=== PATIENT | female | born 1970 | race Caucasian/White ===

== ENCOUNTER 2016-06-16 23:19 | Emergency (ER) | payer BC, OTHER ==
[2016-06-16 23:25] VITALS: BP 136/81; PULSE 87; RESP 18; TEMP 98.7
[2016-06-16] MEDS ORDERED: NITROGLYCERIN SL TABS 0.4 MG TAB SUBLINGUAL STA (23:32)
[2016-06-16] MEDS ORDERED: ASPIRIN 81 MG CHEW PO STA (23:50)
[2016-06-16 23:54] LABS: Basophils # (A) 0.1 k/uL (0-0.2); Basophils % (A) 1 %; CH 31.5; CHCM 33.9; Eosinophils # (A) 0.3 k/uL (0-0.7); Eosinophils % (A) 4 %; HDW 2.25; HGB 13.9 gm/dL (11.4-16.0); Luc # (Auto) 0.27; Luc % (Auto) 3; Lymphocytes # (A) 2.5 k/uL (1.0-4.8); Lymphocytes % (A) 32 %; MCH 30.9 pg (25.0-35.0); MCHC 33.2 g/dL (31.0-37.0); MCV 93.2 fL (80.0-100.0); Mean Platelet Volume 6.8; Monocytes # (A) 0.4 k/uL (0-1.0); Monocytes % (A) 5 %; Neutrophils # (A) 4.3 k/uL (1.3-7.7); Neutrophils % (A) 55 %; RBC 4.51 m/uL (3.80-5.40); RDW 11.9 % (11.5-15.5); WBC 7.9 k/uL (3.8-10.6); WBC (Perox) 8.15
[2016-06-17 00:03] LABS: ALT 42 U/L (9-52); AST 25 U/L (14-36); Alkaline Phosphatase 49 U/L (38-126); Anion Gap 12 mmol/L; Blood Urea Nitrogen 23 mg/dL (7-17); Calcium 9.3 mg/dL (8.4-10.2); Carbon Dioxide 23 mmol/L (22-30); Chloride 104 mmol/L (98-107); Glucose 115 mg/dL (74-99); INR 0.9 (<1.1); Magnesium 2.3 mg/dL (1.6-2.3); Non-African American GFR(MDRD) 54 (>60 ml/min/1.73 sqM); Partial Thromboplastin Time 23.7 sec (22.0-30.0); Potassium 4.5 mmol/L (3.5-5.1); Prothrombin Time 9.7 sec (9.0-12.0); Sodium 139 mmol/L (137-145); Total Bilirubin 0.5 mg/dL (0.2-1.3); Total Protein 7.1 g/dL (6.3-8.2)
[2016-06-17 00:13] LABS: Creatine Kinase 162 U/L (30-135)
--- NOTE | 2016-06-17 00:18 | ED ---
Chest Pain HPI - General Chief Complaint: Chest Pain Stated Complaint: chest pains Time Seen by Provider: 06/16/16 23:28 Source: patient, RN notes reviewed Mode of arrival: ambulatory Limitations: no limitations - History of Present Illness Initial Comments: 45-year-old female presents emergency Department chief complaint chest pain. Patient states she woke up just rinse morning states his been on-and-off and not resolving. She states it is better at rest worse with some movement but states that she is concerned as she has a strong family history of heart disease. Patient states she also has history of hyperlipidemia treated with diet. Patient denies diabetes, hypertension. Patient states is all left-sided pain primarily underneath her left breast. Patient contributed the pain initially to exercising and which she did a chest work out, played volleyball. Patient denies any associated shortness breath, diaphoretic episodes, nausea or vomiting. Patient states that she better with her anxiety initially took 2 Xanax no relief. She states that she tried her inhaler for asthma with no relief. Patient has NO KNOWN DRUG ALLERGIES. - Related Data Home Medications Medication Instructions Recorded Confirmed ALPRAZolam [Xanax] 0.25 mg PO TID PRN 06/16/16 06/16/16 Albuterol Inhaler [Ventolin Hfa 2 puff INHALATION RT-Q6H PRN 06/16/16 06/16/16 Inhaler] Esomeprazole Magnesium [NexIUM] 20 mg PO DAILY 06/16/16 06/16/16 Ibuprofen [Motrin] 800 mg PO BID PRN 06/16/16 06/16/16 Multivitamin [Multivitamins Adult 1 tab PO DAILY 06/16/16 06/16/16 Gummies] Allergies Allergy/AdvReac Type Severity Reaction Status Date / Time No Known Allergies Allergy Verified 06/16/16 23:44 Review of Systems ROS Statement: Those systems with pertinent positive or pertinent negative responses have been documented in the HPI. ROS Other: All systems not noted in ROS Statement are negative. EKG Findings - EKG Comments: EKG Findings:: EKG performed at 23:35 sinus rhythm with short CO, rate of 75 CO interval 110 QRS duration 70, QT/QTc 326/364 Past Medical History Past Medical History: GERD/Reflux History of Any Multi-Drug Resistant Organisms: None Reported Past Surgical History: Bladder Surgery, Tubal Ligation Past Psychological History: Anxiety, Panic Disorder Smoking Status: Current some day smoker Past Alcohol Use History: Occasional Past Drug Use History: None Reported General Exam Limitations: no limitations General appearance: alert, in no apparent distress Head exam: Present: atraumatic, normocephalic, normal inspection Respiratory exam: Present: normal lung sounds bilaterally, chest wall tenderness (Mild tenderness underneath the left breast). Absent: respiratory distress, wheezes, rales, rhonchi, stridor Cardiovascular Exam: Present: regular rate, normal rhythm, normal heart sounds. Absent: systolic murmur, diastolic murmur, rubs, gallop, clicks GI/Abdominal exam: Present: soft, normal bowel sounds. Absent: distended, tenderness, guarding, rebound, rigid Course Vital Signs 06/16/16 23:21 Temperature 98.7 F Pulse Rate 87 Respiratory 18 Rate Blood Pressure 136/81 O2 Sat by Pulse 100 Oximetry Chest Pain MDM - MDM 45-year-old female present for left-sided chest pain. Patient's pain is better at rest and is reproducible. Patient's EKG shows no acute abnormality. Patient troponin is negative. The pain started over 12 hours ago. Patient is strongly advised take 81 mg aspirin daily, follow up with primary care physician to schedule a stress test. Patient agrees to plan. Disposition Clinical Impression: Chest wall pain Disposition: HOME SELF-CARE Condition: Stable Instructions: Chest Pain (ED) Additional Instructions: Follow-up with PCP for scheduling of a stress test. Please return to the Emergency Department if symptoms worsen or any other concerns. Time of Disposition: 00:48
[2016-06-17 00:26] LABS: Creatine Kinase MB 1.4 ng/mL (0.0-2.4); Troponin I <0.012 ng/mL (0.000-0.034)
--- NOTE | 2016-06-17 00:40 | XR ---
EXAMINATION TYPE: XR chest 2V DATE OF EXAM: 06/17/2016 12:11 AM COMPARISON: 05/19/2014 HISTORY: Chest pain and asthma TECHNIQUE: Frontal and lateral views of the chest are obtained. FINDINGS: There is no focal air space opacity, pleural effusion, or pneumothorax seen. The cardiac silhouette size is within normal limits. The osseous structures are intact. IMPRESSION: 1. No acute cardiopulmonary process. 2. No significant change.
== END 2016-06-17 01:12 | disposition home or self-care (01) ==
LOC: EC 23:19
DX: R07.89 Other chest pain (principal); K21.9 Gastro-esophageal reflux disease without esophagitis; F17.200 Nicotine dependence, unspecified, uncomplicated; Z79.899 Other long term (current) drug therapy; Z82.49 Family history of ischemic heart disease and other diseases of the circulatory system
CPT/HCPCS: 36415; 71020; 80053; 82550; 82553; 83690; 83735; 84484; 85025; 85610; 85730; 93005; 99285

== ENCOUNTER → 2017-03-24 | Outpatient (CLI) | payer OTHER ==
--- NOTE | 2017-03-24 13:04 | MR ---
EXAMINATION TYPE: MR knee LT wo con DATE OF EXAM: 03/24/2017 COMPARISON: Unavailable HISTORY: Left knee pain TECHNIQUE: Multiplanar, multisequence imaging of the left knee is performed without IV contrast. 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 Anterior and posterior horns are intact wi thout tear. LATERAL MENISCUS: Anterior and posterior horns are intact without tear. CRUCIATE LIGAMENTS: The anterior and posterior cruciate ligaments are intact and unremarkable. COLLATERAL LIGAMENTS: The medial collateral ligament is intact. Some tendinosis may be present along the fibular collateral ligament, popliteus tendon. EXTENSOR MECHANISM: Visualized quadriceps and patellar tendons are intact. EFFUSION: Small amount of joint fluid present in the patellar bursa. POPLITEAL CYST: There is fluid signal present compatible with semimembranosus gastrocnemius cyst, th is is likely ruptured, fluid signal courses within the intermuscular region posterior to the knee. TRICOMPARTMENT SPACES: Maintained CARTILAGE: Grade 2 to grade III chondromalacia suspected in posterior patella, lateral femoral condyl e cartilage. BONE MARROW SIGNAL: No focal abnormal marrow signal is appreciated. OTHER: No additional significant abnormality is appreciated. IMPRESSION: There may be a ruptured Mahan's cyst. Collateral ligament tendinosis as described. Joint effusion. Ch ondromalacia, findings may be indicative of osteoarthritis. Additional findings above.
== END | disposition home or self-care (01) ==
LOC: RADMRIMAIN 09:22
PROVIDERS: ATTEND Orthopaedic Surgery
DX: M25.462 Effusion, left knee (principal); M94.262 Chondromalacia, left knee

== ENCOUNTER 2018-03-30 09:36 | Observation (INO) | payer OTHER ==
[2018-03-30] MEDS ORDERED: ASPIRIN 81 MG PO STA (10:31)
[2018-03-30] MEDS ORDERED: NITROGLYCERIN OINT 1 INCH/GM PACKET TOPICAL STA (10:31)
--- NOTE | 2018-03-30 10:37 | ED ---
General Adult HPI - General Chief complaint: Chest Pain Stated complaint: Chest pain Time Seen by Provider: 03/30/18 10:00 Source: patient, RN notes reviewed Mode of arrival: ambulatory - History of Present Illness Initial comments: This is a 47-year-old female who presents to the emergency department complaining of chest pain. She has a past history significant for cardiac disease in both parents and both siblings. Patient comes in today stating she' s had intermittent chest pain lasting about an hour to 2 hours over the last 2 weeks. Patient states the pain radiates to her left arm. Patient states she also has shortness of breath per patient denies any diaphoretic episodes or nausea. Patient states the pain seems to worsen with exertion. Patient states the frequency of the pain and the duration seems to be worsening over the last few days and this is why she came in today. Patient denies any diabetes hypertension high cost felt. Patient denies any smoking history. Patient denies any swelling to legs or calf tenderness. Patient denies abdominal pain. It is just or near syncopal episode. - Related Data Home Medications Medication Instructions Recorded Confirmed Esomeprazole Magnesium [NexIUM] 20 mg PO DAILY 06/16/16 03/30/18 Allergies Allergy/AdvReac Type Severity Reaction Status Date / Time No Known Allergies Allergy Verified 03/30/18 10:22 Review of Systems ROS Statement: Those systems with pertinent positive or pertinent negative responses have been documented in the HPI. ROS Other: All systems not noted in ROS Statement are negative. Past Medical History Past Medical History: GERD/Reflux History of Any Multi-Drug Resistant Organisms: None Reported Past Surgical History: Bladder Surgery, Tubal Ligation Past Psychological History: Anxiety, Panic Disorder Smoking Status: Former smoker Past Alcohol Use History: Occasional Past Drug Use History: None Reported General Exam - General Exam Comments Initial Comments: GENERAL: Patient is well-developed and well-nourished. Patient is nontoxic and well- hydrated and is in mild distress. ENT: Neck is soft and supple. No significant lymphadenopathy is noted. Oropharynx is clear. Moist mucous membranes. Neck has full range of motion without eliciting any pain. EYES: The sclera were anicteric and conjunctiva were pink and moist. Extraocular movements were intact and pupils were equal round and reactive to light. Eyelids were unremarkable. PULMONARY: Unlabored respirations. Good breath sounds bilaterally. No audible rales rhonchi or wheezing was noted. CARDIOVASCULAR: There is a regular rate and rhythm without any murmurs gallops or rubs. ABDOMEN: Soft and nontender with normal bowel sounds. No palpable organomegaly was noted. There is no palpable pulsatile mass. SKIN: Skin is clear with no lesions or rashes and otherwise unremarkable. NEUROLOGIC: Patient is alert and oriented x3. Cranial nerves II through XII are grossly intact. Motor and sensory are also intact. Normal speech, volume and content. Symmetrical smile. MUSCULOSKELETAL: Normal extremities with adequate strength and full range of motion. No lower extremity swelling or edema. No calf tenderness. LYMPHATICS: No significant lymphadenopathy is noted PSYCHIATRIC: Normal psychiatric evaluation. Normal interpersonal interactions appears functionally intact in deals appropriately with others. No signs of depression. No signs of anxiety. Course Vital Signs 03/30/18 03/30/18 09:40 10:57 Temperature 98.5 F Pulse Rate 92 80 Respiratory 18 18 Rate Blood Pressure 141/93 137/98 O2 Sat by Pulse 100 100 Oximetry Medical Decision Making - Medical Decision Making EKG shows a normal sinus rhythm at 83 bpm MO interval is 116 QRS is 76 QT interval 360 QTC is 423. Patient's EKG shows no ST segment elevation or ST segment depression. No T-wave abnormalities are noted. Chest x-ray shows no acute abnormality. - Lab Data Result diagrams: 03/30/18 10:12 03/30/18 10:12 Lab Results 03/30/18 03/30/18 03/30/18 Range/Units 10:12 10:12 10:12 WBC 6.3 (3.8-10.6) k/uL RBC 4.55 (3.80-5.40) m/uL Hgb 14.0 (11.4-16.0) gm/dL Hct 41.5 (34.0-46.0) % MCV 91.2 (80.0-100.0) fL MCH 30.7 (25.0-35.0) pg MCHC 33.6 (31.0-37.0) g/dL RDW 11.7 (11.5-15.5) % Plt Count 272 (150-450) k/uL Neutrophils % 66 % Lymphocytes % 25 % Monocytes % 6 % Eosinophils % 1 % Basophils % 1 % Neutrophils # 4.1 (1.3-7.7) k/uL Lymphocytes # 1.6 (1.0-4.8) k/uL Monocytes # 0.4 (0-1.0) k/uL Eosinophils # 0.1 (0-0.7) k/uL Basophils # 0.0 (0-0.2) k/uL PT (9.0-12.0) sec INR (<1.2) APTT (22.0-30.0) sec Sodium 137 (137-145) mmol/L Potassium 4.7 (3.5-5.1) mmol/L Chloride 108 H (98-107) mmol/L Carbon Dioxide 22 (22-30) mmol/L Anion Gap 7 mmol/L BUN 22 H (7-17) mg/dL Creatinine 0.84 (0.52-1.04) mg/dL Est GFR (CKD-EPI)AfAm >90 (>60 ml/min/1.73 sqM) Est GFR (CKD-EPI)NonAf 83 (>60 ml/min/1.73 sqM) Glucose 104 H (74-99) mg/dL Calcium 9.6 (8.4-10.2) mg/dL Magnesium 2.2 (1.6-2.3) mg/dL Total Bilirubin 0.6 (0.2-1.3) mg/dL AST 23 (14-36) U/L ALT 41 (9-52) U/L Alkaline Phosphatase 37 L (38-126) U/L Total Creatine Kinase 45 (30-135) U/L CK-MB (CK-2) 0.2 (0.0-2.4) ng/mL CK-MB (CK-2) Rel Index 0.4 Troponin I <0.012 (0.000-0.034) ng/mL Total Protein 6.9 (6.3-8.2) g/dL Albumin 4.1 (3.5-5.0) g/dL 03/30/18 Range/Units 10:12 WBC (3.8-10.6) k/uL RBC (3.80-5.40) m/uL Hgb (11.4-16.0) gm/dL Hct (34.0-46.0) % MCV (80.0-100.0) fL MCH (25.0-35.0) pg MCHC (31.0-37.0) g/dL RDW (11.5-15.5) % Plt Count (150-450) k/uL Neutrophils % % Lymphocytes % % Monocytes % % Eosinophils % % Basophils % % Neutrophils # (1.3-7.7) k/uL Lymphocytes # (1.0-4.8) k/uL Monocytes # (0-1.0) k/uL Eosinophils # (0-0.7) k/uL Basophils # (0-0.2) k/uL PT 9.5 (9.0-12.0) sec INR 1.0 (<1.2) APTT 23.5 (22.0-30.0) sec Sodium (137-145) mmol/L Potassium (3.5-5.1) mmol/L Chloride (98-107) mmol/L Carbon Dioxide (22-30) mmol/L Anion Gap mmol/L BUN (7-17) mg/dL Creatinine (0.52-1.04) mg/dL Est GFR (CKD-EPI)AfAm (>60 ml/min/1.73 sqM) Est GFR (CKD-EPI)NonAf (>60 ml/min/1.73 sqM) Glucose (74-99) mg/dL Calcium (8.4-10.2) mg/dL Magnesium (1.6-2.3) mg/dL Total Bilirubin (0.2-1.3) mg/dL AST (14-36) U/L ALT (9-52) U/L Alkaline Phosphatase (38-126) U/L Total Creatine Kinase (30-135) U/L CK-MB (CK-2) (0.0-2.4) ng/mL CK-MB (CK-2) Rel Index Troponin I (0.000-0.034) ng/mL Total Protein (6.3-8.2) g/dL Albumin (3.5-5.0) g/dL Critical Care Time Critical Care Time: Yes Total Critical Care Time: 35 Disposition Clinical Impression: Unstable angina pectoris Disposition: ADMITTED IP TO THIS [facility] Referrals: Abiodun Beck Jr, [Primary Care Provider] - 1-2 days Time of Disposition: 12:11
[2018-03-30 10:57] LABS: Basophils % (A) 1 %; Eosinophils # (A) 0.1 k/uL (0-0.7); Eosinophils % (A) 1 %; HCT 41.5 % (34.0-46.0); Lymphocytes # (A) 1.6 k/uL (1.0-4.8); Lymphocytes % (A) 25 %; MCH 30.7 pg (25.0-35.0); MCHC 33.6 g/dL (31.0-37.0); MCV 91.2 fL (80.0-100.0); Mean Platelet Volume 6.7; Monocytes # (A) 0.4 k/uL (0-1.0); Monocytes % (A) 6 %; Neutrophils # (A) 4.1 k/uL (1.3-7.7); Neutrophils % (A) 66 %; Platelet Count 272 k/uL (150-450); RBC 4.55 m/uL (3.80-5.40); RDW 11.7 % (11.5-15.5); WBC 6.3 k/uL (3.8-10.6)
--- NOTE | 2018-03-30 10:57 | XR ---
EXAMINATION TYPE: XR chest 2V DATE OF EXAM: 03/30/2018 COMPARISON: June 17, 2016 HISTORY: Chest pain TECHNIQUE: Frontal and lateral views of the chest are obtained. FINDINGS: There is no focal air space opacity. No evidence for pneumothorax. No pleural effusion. The cardiac silhouette size is within normal limits. The osseous structures are grossly intact. IMPRESSION: 1. No acute cardiopulmonary process.
[2018-03-30 11:01] LABS: Partial Thromboplastin Time 23.5 sec (22.0-30.0); Prothrombin Time 9.5 sec (9.0-12.0)
[2018-03-30 11:04] LABS: ALT 41 U/L (9-52); AST 23 U/L (14-36); Albumin 4.1 g/dL (3.5-5.0); Alkaline Phosphatase 37 U/L (38-126); Anion Gap 7 mmol/L; Blood Urea Nitrogen 22 mg/dL (7-17); Calcium 9.6 mg/dL (8.4-10.2); Carbon Dioxide 22 mmol/L (22-30); Chloride 108 mmol/L (98-107); Glucose 104 mg/dL (74-99); Magnesium 2.2 mg/dL (1.6-2.3); Potassium 4.7 mmol/L (3.5-5.1); Sodium 137 mmol/L (137-145); Total Bilirubin 0.6 mg/dL (0.2-1.3); Total Protein 6.9 g/dL (6.3-8.2)
[2018-03-30 11:16] LABS: Creatine Kinase 45 U/L (30-135)
[2018-03-30 11:28] LABS: Creatine Kinase MB 0.2 ng/mL (0.0-2.4); Troponin I <0.012 ng/mL (0.000-0.034)
[2018-03-30] MEDS ORDERED: HEPARIN SODIUM,PORCINE 5,000 UNIT/ML 1 ML VIAL IV ONE (12:07)
[2018-03-30] MEDS ORDERED: NITROGLYCERIN SL TABS 0.4 MG TAB SUBLINGUAL PRN (12:14)
[2018-03-30] MEDS ORDERED: HEPARIN SOD,PORK IN 0.45% NACL 25,000 UNIT in 0.45% NACL 1 500ML.BAG IV SCH (12:15)
--- NOTE | 2018-03-30 15:30 | P.CRDCN ---
History of Present Illness History of present illness: This is a pleasant 47-year-old female past medical history significant for gastroesophageal reflux disease anxiety. She denies history of coronary artery disease, hypertension, dyslipidemia or diabetes mellitus. She has never seen a core carrier for any reason. We have been asked to see her in consultation for chest pain. She states over the last week she has been under an increased amount of stress. She states she does suffer with anxiety and says that it gets worse when she is stressed out. She has been experiencing intermittent symptoms of burning in the mid-sternal region with radiation to the left shoulder. When she is experiencing these symptoms she feels like she cannot take a deep breath. She denies radiation to the back, neck or jaw. She does feel some tingling in the left hand at times. She denies palpitations, dizziness, nausea, vomiting or diaphoresis. This morning she woke up with the burning in her chest and it has been constant all day. Typically it goes away after 10-15 minutes but this time it was persistent. She carried on with her normal routine today and the pain didn't get any worse with activity, just remained constant. EKG reveals sinus mechanism with no acute ST or T wave abnormalities noted. Chest x-ray is negative for an acute cardiopulmonary process. Laboratory data reviewed, hemoglobin 14, platelets 272, sodium 137, potassium 4.7, creatinine 0.84, magnesium 2.2, cardiac enzymes negative 1. She takes no daily cardiac medications. At the time of my exam: CONSTITUTIONAL: Denies fever. Denies chills. EYES: Denies blurred vision. Denies vision changes. Denies eye pain. EARS, NOSE, MOUTH & THROAT: Denies headache. Denies sore throat. Denies ear pain. CARDIOVASCULAR: Denies chest pain. Denies shortness of breath. Denies orthopnea. Denies PND. Denies palpitations. RESPIRATORY: Denies cough. GASTROINTESTINAL: Denies abdominal pain. Denies diarrhea. Denies constipation. Denies nausea. Denies vomiting. MUSCULOSKELETAL: Denies myalgias. INTEGUMENTARY: Denies pruitis. Denies rash. NEUROLOGIC: Denies numbness. Denies tingling. Denies weakness. PSYCHIATRIC: Denies anxiety. Denies depression. ENDOCRINE: Denies fatigue. Denies weight change. Denies polydipsia. Denies polyurina. GENITOURINARY: Denies burning, hematuria or urgency with micturation. HEMATOLOGIC: Denies history of anemia. Denies bleeding. Blood pressure 137/98 heart rate 88 afebrile maintaining oxygen saturation on room air GENERAL: This is a 47-year-old female in no apparent distress at the time of my examination. HEENT: Head is atraumatic, normocephalic. Pupils are equal, round. Sclerae anicteric. Conjunctivae are clear. Mucous membranes of the mouth are moist. Neck is supple. There is no jugular venous distention. No carotid bruit is heard. LUNGS: Clear to auscultation no wheezes, rales or rhonchi. No chest wall tenderness is noted on palpation or with deep breathing. HEART: Regular rate and rhythm without murmurs, rubs or gallops. S1 and S2 heard. ABDOMEN: Soft, nontender. Bowel sounds are heard. No organomegaly noted. EXTREMITIES: No evidence of peripheral edema and no calf tenderness noted. VASCULAR: Radial and dorsalis pedis pulses palpated, no evidence of clubbing. NEUROLOGIC: Patient is awake, alert and oriented x3. ASSESSMENT Precordial chest pain. Gastroesophageal relux disease Anxiety Significant family history of premature coronary artery disease PLAN Continue to obtain cardiac enzymes to rule out an acute coronary event. Obtain 2D echocardiogram and doppler study to assess cardiac structure and function. Increase activity and ambulation in the hallways and continue to assess for ongoing chest discomfort. Further recommendations to follow based on clinical course. Thank you kindly for this consultation. Nurse Practitioner note has been reviewed, I agree with a documented findings and plan of care. Patient was seen and examined. Past Medical History Past Medical History: GERD/Reflux History of Any Multi-Drug Resistant Organisms: None Reported Past Surgical History: Bladder Surgery, Tubal Ligation Past Psychological History: Anxiety, Panic Disorder Smoking Status: Former smoker Past Alcohol Use History: Occasional Past Drug Use History: None Reported Medications and Allergies Home Medications Medication Instructions Recorded Confirmed Type Esomeprazole Magnesium [NexIUM] 20 mg PO DAILY 06/16/16 03/30/18 History Allergies Allergy/AdvReac Type Severity Reaction Status Date / Time No Known Allergies Allergy Verified 03/30/18 10:22 Physical Exam Vitals: Vital Signs Temp Pulse Resp BP Pulse Ox 03/30/18 10:57 80 18 137/98 100 11/16/18 09:40 98.5 F 92 18 141/93 100 Intake and Output 03/29/18 03/30/18 03/30/18 22:59 06:59 14:59 Other: Weight 86.636 kg Results 03/30/18 10:12 03/30/18 10:12 Cardiac Enzymes 03/30/18 03/30/18 Range/Units 10:12 10:12 AST 23 (14-36) U/L CK-MB (CK-2) 0.2 (0.0-2.4) ng/mL Troponin I <0.012 (0.000-0.034) ng/mL Coagulation 03/30/18 Range/Units 10:12 PT 9.5 (9.0-12.0) sec APTT 23.5 (22.0-30.0) sec CBC 03/30/18 Range/Units 10:12 WBC 6.3 (3.8-10.6) k/uL RBC 4.55 (3.80-5.40) m/uL Hgb 14.0 (11.4-16.0) gm/dL Hct 41.5 (34.0-46.0) % Plt Count 272 (150-450) k/uL Comprehensive Metabolic Panel 03/30/18 Range/Units 10:12 Sodium 137 (137-145) mmol/L Potassium 4.7 (3.5-5.1) mmol/L Chloride 108 H (98-107) mmol/L Carbon Dioxide 22 (22-30) mmol/L BUN 22 H (7-17) mg/dL Creatinine 0.84 (0.52-1.04) mg/dL Glucose 104 H (74-99) mg/dL Calcium 9.6 (8.4-10.2) mg/dL AST 23 (14-36) U/L ALT 41 (9-52) U/L Alkaline Phosphatase 37 L (38-126) U/L Total Protein 6.9 (6.3-8.2) g/dL Albumin 4.1 (3.5-5.0) g/dL Current Medications Generic Name Dose Route Start Last Admin Trade Name Freq PRN Reason Stop Dose Admin Aspirin 325 mg 03/31/18 09:00 Aspirin PO DAILY YI Heparin Sodium/Sodium Chloride 500 mls @ 20 mls/hr 03/30/18 12:15 25,000 unit/ Sodium Chloride IV .Q24H REPLACED BY [facility] Protocol 11.543 UNITS/KG/HR Nitroglycerin 1 inch 03/30/18 18:00 Nitro-Bid Oint TOPICAL Q6HR REPLACED BY [facility] Nitroglycerin 0.4 mg 03/30/18 12:14 Nitrostat SUBLINGUAL Q5M PRN Chest Pain Intake and Output 03/29/18 03/30/18 03/30/18 22:59 06:59 14:59 Other: Weight 86.636 kg Patient Weight 03/31/18 06:59 Weight 86.636 kg 03/30/18 10:12 03/30/18 10:12
[2018-03-30 16:33] LABS: Creatine Kinase 42 U/L (30-135)
[2018-03-30 16:47] LABS: Creatine Kinase MB <0.2 ng/mL (0.0-2.4); Troponin I <0.012 ng/mL (0.000-0.034)
[2018-03-30] MEDS ORDERED: NITROGLYCERIN OINT 1 INCH/GM PACKET TOPICAL SCH (18:00)
[2018-03-30 19:36] VITALS: BP 128/85; PULSE 83; RESP 16; TEMP 97.6
--- NOTE | 2018-03-31 06:39 | ECHOF ---
Referral Reason:cp, sob MEASUREMENTS -------- HEIGHT: 165.1 cm WEIGHT: 86.6 kg BP: 137/98 RVIDd: 2.3 cm (< 3.3) IVSd: 0.9 cm (0.6 - 1.1) LVIDd: 4.3 cm (3.9 - 5.3) LVPWd: 0.9 cm (0.6 - 1.1) IVSs: 1.3 cm LVIDs: 2.9 cm LVPWs: 1.4 cm LAESV Index (A-L): 16.35 ml/m Ao Diam: 3.0 cm (2.0 - 3.7) AV Cusp: 2.0 cm (1.5 - 2.6) LA Diam: 2.0 cm (2.7 - 3.8) EPSS: 0.6 cm MV E Rene: 0.75 m/s MV DecT: 295 ms MV A Rene: 0.72 m/s MV E/A Ratio: 1.05 RAP: 5.00 mmHg RVSP: 23.37 mmHg MV EF SLOPE: 100.93 mm/s (70 - 150) MV EXCURSION: 1.90 cm (> 18.000) FINDINGS -------- Sinus rhythm. This was a technically good study. The left ventricular size is normal. Left ventricular wall thickness is normal. Overall left vent ricular systolic function is normal with, an EF between 55 - 60 %. The right ventricle is normal in size and function. Normal LA size by volume 22+/-6 ml/m2. The right atrium is normal in size. The aortic valve is trileaflet, and appears structurally normal. No aortic stenosis or regurgitation. The mitral valve leaflets are mildly thickened. There is trace to mild mitral regurgitation. Trace tricuspid regurgitation present. Right ventricular systolic pressure is normal at < 35 mmHg. There is no evidence of pulmonary hypertension. The pulmonic valve was not well visualized. The aortic root size is normal. Normal inferior vena cava with normal inspiratory collapse consistent with estimated right atrial pre ssure of 5 mmHg. There is no pericardial effusion. CONCLUSIONS -------- 1. Sinus rhythm. 2. This was a technically good study. 3. The left ventricular size is normal. 4. Left ventricular wall thickness is normal. 5. Overall left ventricular systolic function is normal with, an EF between 55 - 60 %. 6. Normal LA size by volume 22+/-6 ml/m2. 7. The aortic valve is trileaflet, and appears structurally normal. No aortic stenosis or regurgitati on. 8. The mitral valve leaflets are mildly thickened. 9. There is trace to mild mitral regurgitation. 10. Trace tricuspid regurgitation present. 11. Right ventricular systolic pressure is normal at < 35 mmHg. 12. There is no evidence of pulmonary hypertension. 13. The pulmonic valve was not well visualized. 14. The aortic root size is normal. 15. There is no pericardial effusion. PROGRAM PLANNER: Keon Giraldo RDCS
[2018-03-31] MEDS ORDERED: PANTOPRAZOLE 40 MG TABLET PO SCH (07:30)
[2018-03-31] MEDS ORDERED: ASPIRIN 325 MG TAB PO SCH (09:00)
== END 2018-03-30 20:10 | disposition home or self-care (01) ==
LOC: EC 09:36 → 1SOBS 12:14
PROVIDERS: ADMIT Family Medicine; ATTEND Family Medicine
DX: R07.2 Precordial pain (principal); F41.0 Panic disorder [episodic paroxysmal anxiety]; R20.2 Paresthesia of skin; K21.9 Gastro-esophageal reflux disease without esophagitis; Z82.49 Family history of ischemic heart disease and other diseases of the circulatory system; Z87.891 Personal history of nicotine dependence; Z98.51 Tubal ligation status; Z79.899 Other long term (current) drug therapy
CPT/HCPCS: 99291; 36415; 93005; 93306; 80053; 82550; 82553; 83735; 84484; 85025; 85610; 85730; 71046; G0378

== ENCOUNTER → 2022-02-25 | Outpatient (CLI) | payer MEDICAID ==
--- NOTE | 2022-02-28 11:46 | MM ---
Reason for Exam: Screening (asymptomatic). Last mammogram was performed 14 year(s) and 11 month(s) ago. Patient History: Menarche at age 12. First Full-Term at age 23. Patient used Hormonal Contraceptives for 2 years. Risk Values: Darlene 5 year model risk: 0.9%. NCI Lifetime model risk: 7.9%. Prior Study Comparison: 04/26/2006 Left Diagnostic Mammogram, [facility]. 04/13/2007 Bilateral Screening Mammogram, [facility]. 04/24/2007 Left Diagnostic Mammogram, [facility]. Tissue Density: The breast tissue is heterogeneously dense. This may lower the sensitivity of mammography. Findings: Analyzed By CAD. There is 2.8 cm spiculated mass in the middle depth outer slightly inferior aspect left breast that warrants further workup. Benign-appearing bilateral axillary lymph nodes are present. Overall Assessment: Incomplete: need additional imaging evaluation, BI-RAD 0 Management: Diagnostic Breast Ultrasound of the left breast. Targeted ultrasound left breast. Electronically signed and approved by: Osei Deleon M.D.
== END | disposition home or self-care (01) ==
LOC: RADMAMWWP 12:48
PROVIDERS: ATTEND Obstetrics & Gynecology
DX: Z12.31 Encounter for screening mammogram for malignant neoplasm of breast (principal)
CPT/HCPCS: 77063; 77067

== ENCOUNTER → 2022-03-04 | Outpatient (CLI) | payer MEDICAID ==
--- NOTE | 2022-03-04 14:21 | USB ---
Patient History: Menarche at age 12. First Full-Term at age 23. Patient used Hormonal Contraceptives for 2 years. Risk Values: Darlene 5 year model risk: 0.9%. NCI Lifetime model risk: 7.9%. Technique: Method: Targeted. Prior Study Comparison: 04/13/2007 Bilateral Screening Mammogram, [facility]. 04/24/2007 Left Diagnostic Mammogram, [facility]. 02/25/2022 Bilateral MG 3D screening mammo w/cad, [facility]. Findings: The lower outer quadrant of the left breast, the axilla of the left breast and the retroareolar of the left breast were scanned. Left breast 3:00-6:00 was scanned. There is a spiculated hypoechoic mass with ill-defined borders that is antiparallel measuring up to 2.1 x 1.2 x 1.2 cm at 4:00 6 cm from the nipple. Additional anechoic cyst is immediately adjacent measuring up to 4 mm. Overall Assessment: Highly suggestive of malignancy, BI-RAD 5 Management: Ultrasound Core Biopsy of the left breast. A clinical breast exam by your physician is recommended on an annual basis and results should be correlated with mammographic findings. This exam should not preclude additional follow-up of suspicious palpable abnormalities. ??Results were given to the patient verbally at the time of exam. Electronically signed and approved by: Fan Alexander DO
== END | disposition home or self-care (01) ==
LOC: RADUSWWP 13:32
PROVIDERS: ATTEND Obstetrics & Gynecology
DX: R92.8 Other abnormal and inconclusive findings on diagnostic imaging of breast (principal)

== ENCOUNTER → 2022-03-16 | Day surgery (SDC) | payer MEDICAID ==
--- NOTE | 2022-03-21 14:44 | MM ---
Reason for Exam: Post Procedure Mammogram. Last screening mammogram was performed less than 1 month ago. Patient History: Menarche at age 12. First Full-Term at age 23. Patient used Hormonal Contraceptives for 2 years. Risk Values: Darlene 5 year model risk: 0.9%. NCI Lifetime model risk: 7.9%. Prior Study Comparison: 04/13/2007 Bilateral Screening Mammogram, [facility]. 04/24/2007 Left Diagnostic Mammogram, [facility]. 02/25/2022 Bilateral MG 3D screening mammo w/cad, [facility]. Tissue Density: Left: The breast tissue is heterogeneously dense. This may lower the sensitivity of mammography. Pathology Description: Location: 4 o'clock, lower outer quadrant. Marker Left Behind. Needle Type: Celero Cores: 2 Gauge: 12 The procedure of ultrasound guided core biopsy was explained to the patient. Benefits, alternatives, and risks were discussed. An informed consent was then obtained. The patient was placed in supine positioning for imaging and for the procedure. Preprocedure ultrasound redemonstrates irregular hypoechoic 1.8 cm mass at 4:00 position left breast approximately 6 cm distance from nipple. The overlying skin was prepped and draped in usual sterile fashion. Lidocaine is used as anesthetic into the skin and subcutaneous tissue. Lidocaine with epinephrine is used as anesthetic into the deeper tissue up to area of concern in the left breast. A chloe was made with surgical scalpel. Under ultrasound guidance, a vacuum assisted biopsy gun device was used to obtain 2 core samples. Following this, a biopsy clip was left in lesion. The patient tolerated the procedure well without any immediate complication. The patient was kept in the radiology department for short stay after the procedure and then discharged home in stable condition. Postprocedure mammogram: The patient was transferred to mammography for physician ordered post procedure mammogram for clip placement verification. Clip in satisfactory position relative to area of concern on original mammogram. Impression: Successful, uncomplicated ultrasound guided core biopsy of area of concern in the left breast, full pathology results to follow. High index of suspicion noted at time of procedure. Pathology Results: Result: Malignant, Invasive ductal carcinoma. LEFT BREAST, FOUR O'CLOCK, ULTRASOUND GUIDED NEEDLE CORE BIOPSY: Invasive moderately differentiated ductal carcinoma (grade 2). See Surgical Pathology Cancer Case Summary and Comment. Overall Assessment: Malignant Assessment: MG diagnostic mammo LT wo CAD. - Left: Known biopsy proven malignancy, BI-RAD 6. Management: Surgical Consultation of the left breast. Electronically signed and approved by: Osei Deleon M.D.
== END ==
LOC: RADUSWWP 10:14
PROVIDERS: ATTEND Surgery
DX: C50.912 Malignant neoplasm of unspecified site of left female breast (principal); Z17.0 Estrogen receptor positive status [ER+]
CPT/HCPCS: 88305; 88342; 88341; 77065; 19083; A4648

== ENCOUNTER → 2022-03-18 | Outpatient (CLI) | payer MEDICAID ==
[2022-03-18 11:57] VITALS: BP 136/86; PULSE 81; RESP 17; TEMP 98
--- NOTE | 2022-03-18 12:34 | P.GSHP ---
History of Present Illness H&P Date: 03/18/22 Chief Complaint: Left breast invasive ductal carcinoma Zohreh is a 51-year-old white female seen in consultation for Dr. Alford with a left breast core biopsy revealing invasive ductal carcinoma. She underwent a bilateral screening mammogram on [id number] which revealed a 2.8 cm spiculated mass in the middle depth other inferior aspect of the left breast for which further workup was recommended. A diagnostic ultrasound was performed which confirmed the lesion of concern. This revealed a 2.1 x 1.2 cm lesion at the 6 o'clock position of the left breast. An ultrasound-guided core biopsy was performed on which was positive for invasive ductal carcinoma, ER/CT positive, HER-2 negative, grade 2. The patient does not feel anything in her breast. She was to undergo hormone therapy as she is perimenopausal and as part of the workup a mammogram was ordered. She had not had a mammogram for several years. She has never had any surgery in her breasts. She has not had any recent trauma or infection in the breast. She is not complaining of any nipple discharge or skin changes. Nicotine: stopped 5 years ago, used to smoke 1/3 PPD; intermittently for 20 years Caffeine: 2 cups/day chocolate: occasional hormones: none Family History: mother: endometrial cancer paternal grandmother: lymphoma Hormonal history: Menarche: 12 breast fed: no, age at first : 23 menopause: LMP October 2007; had an ablation had a hysterectomy in 2011 did not take her ovaries not done for cancer; she had precancer cells removed from cervix in 2009 Surgical history: Right ankle hysterectomy Bladder sling tubal Medical History: asthma HTN Social History: nicotine: Negative Alcohol: Occasional Drugs: - Constitutional Constitutional: Reports sweats - EENT Eyes: denies blurred vision, denies pain Ears: bilateral: tinnitus, deny: decreased hearing Ears, nose, mouth and throat: Denies headache, Denies sore throat - Breasts Breasts: bilateral: as per HPI - Cardiovascular Cardiovascular: Denies chest pain, Denies shortness of breath - Respiratory Respiratory: Denies cough, Denies 7 - Gastrointestinal Gastrointestinal: Denies abdominal pain, Denies diarrhea, Denies nausea, Denies vomiting - Genitourinary (Female) Genitourinary: Denies dysuria, Denies hematuria - Menstruation Menstruation: Reports post hysterectomy - Musculoskeletal Musculoskeletal: Denies myalgias - Integumentary Integumentary: Denies pruritus, Denies rash - Neurological Neurological: Denies numbness, Denies weakness - Psychiatric Psychiatric: Reports anxiety, Denies depression - Endocrine Endocrine: Denies fatigue, Denies weight change - Hematologic/Lymphatic Comment: none - Allergic/Immunologic Allergic/Immunologic: Reports seasonal allergies Past Medical History Past Medical History: Asthma, GERD/Reflux, Hypertension History of Any Multi-Drug Resistant Organisms: None Reported Past Surgical History: Bladder Surgery, Hysterectomy, Tubal Ligation Additional Past Surgical History / Comment(s): right ankle Past Anesthesia/Blood Transfusion Reactions: No Reported Reaction Past Psychological History: Anxiety, Panic Disorder Smoking Status: Former smoker Past Alcohol Use History: Occasional Additional Past Alcohol Use History / Comment(s): quit smoking 2016 Past Drug Use History: None Reported Medications and Allergies Home Medications Medication Instructions Recorded Confirmed Type Esomeprazole Magnesium [NexIUM] 20 mg PO DAILY 06/16/16 03/18/22 History Losartan [Cozaar] 50 mg PO DAILY 03/07/22 03/18/22 History amLODIPine [Norvasc] 5 mg PO DAILY 03/07/22 03/18/22 History Allergies Allergy/AdvReac Type Severity Reaction Status Date / Time No Known Allergies Allergy Verified 03/18/22 11:53 Surgical - Exam Vital Signs Temp Pulse Resp BP Pulse Ox 98 F 81 17 136/86 100 03/18/22 11:54 03/18/22 11:54 03/18/22 11:54 03/18/22 11:54 03/18/22 11:54 BMI: 31.6 - General no distress - Eyes normal ocular movement - ENT no hearing loss - Neck trachea midline - Respiratory normal respiratory effort - Cardiovascular Heart Sounds: normal: S1, S2 - Abdomen Abdomen: soft - Integumentary normal turgor - Musculoskeletal normal gait - Psychiatric oriented to time, oriented to person, oriented to place, speech is normal, memory intact Breast Exam: BRA: 36D Inspection: bilateral grade 2 ptosis Palpation: Right breast: Multiple position with exam fibrocystic changes no dominant masses or nodules of concern Right axilla: No adenopathy of concern Left breast: Multiple positional exam in approximately the 7 o'clock position is approximately 2 cm area of induration and there are ecchymotic changes from her recent biopsy no other dominant masses or notches of concern Left axilla: No adenopathy of concern Results Mammogram reviewed with Dr. Alexander Assessment and Plan Assessment: Impression: Left breast invasive ductal carcinoma T2 N0 M0 ER/CT positive HER-2/miguel negative G2 stage IB Plan: Presentation of case at tumor board Probable left breast needle localization lumpectomy with hyperplastic tissue transfer, sentinel node biopsy, possible axillary node dissection Possible genetic testing CC: Dr. Alford
== END | disposition home or self-care (01) ==
LOC: WWCWWP 11:34
PROVIDERS: ATTEND Surgery
DX: Z53.9 Procedure and treatment not carried out, unspecified reason (principal)

== ENCOUNTER → 2023-06-21 | Day surgery (SDC) | payer BC, MEDICAID ==
[2023-06-19 12:12] VITALS: BMI 30.7
[~2023-06-21] MED LIST: LIDOCAINE 1% (10MG/ML) FOR IV START INTRADERMA PRN; LIDOCAINE 1% INJ 10MG/ML (20 ML MDV) ONE; PROPOFOL 10 MG/ML 20 ML VIAL IV ONE
[2023-06-21] MEDS: LACTATED RINGERS 1,000 ML IV SCH (09:33)
[2023-06-21 09:43] VITALS: TEMP 96.8
--- NOTE | 2023-06-21 10:27 | P.PCN ---
Date of Procedure: 06/21/23 Procedure(s) Performed: BRIEF HISTORY: Patient is a 52-year-old pleasant female scheduled for an elective colonoscopy as a part of screening for colon cancer. PROCEDURE PERFORMED: Colonoscopy with biopsy. PREOPERATIVE DIAGNOSIS: Screening for colon cancer. IV sedation per Anesthesia. PROCEDURE: After informed consent was obtained, the patient, was brought into the endoscopy unit. IV sedation was administered by Anesthesia under continuous monitoring. Digital rectal examination was normal. Initially the Olympus CF-160 flexible video colonoscope was then inserted in the rectum, gradually advanced into the cecum without any difficulty. Careful examination was performed as the scope was gradually being withdrawn. Ileocecal valve and the appendiceal orifice were visualized and appeared normal. Prep was excellent. Mucosa of the cecum as a millimeter polyp that was removed by cold biopsy. Rest of the, ascending colon, transverse colon, descending colon, sigmoid colon, and rectum appeared normal. In the; there was another 3 mm polyp that was removed by cold biopsy. Retroflexion was performed in the rectum and no lesions were seen. The patient tolerated the procedure well. IMPRESSION: 3 mm cecal polyp status post cold biopsy 3 mm; sigmoid polyp status post cold biopsy Rest of the colon appeared normal RECOMMENDATIONS: Findings of this examination were discussed with the patient and family. She was advised to follow with the biopsy results. If the biopsy results adenoma she can have a repeat colonoscopy in 5 years have a repeat screening colonoscopy in 10 years..
[2023-06-21 10:44] VITALS: RESP 16
[2023-06-21 11:14] VITALS: BP 114/79; PULSE 94
== END ==
LOC: ORWHC2ENDO 09:10
PROVIDERS: ATTEND Internal Medicine Gastroenterology
DX: Z12.11 Encounter for screening for malignant neoplasm of colon (principal); D12.0 Benign neoplasm of cecum; K63.5 Polyp of colon; I10 Essential (primary) hypertension; K21.9 Gastro-esophageal reflux disease without esophagitis; Z85.3 Personal history of malignant neoplasm of breast; Z79.899 Other long term (current) drug therapy
CPT/HCPCS: 88305; 45380; J2001; J2704

== ENCOUNTER → 2023-12-20 | Outpatient (CLI) | payer BC ==
--- NOTE | 2024-01-16 16:11 | BMR ---
EXAM DATE: 12/20/2023 EXAM DESCRIPTION: MRI-Breast Bilat (W/WO Contrast) INDICATION: Breast carcinoma post lumpectomy and radiation therapy. Follow-up examination. COMPARISON: Mammogram and ultrasound examination dated 05/03/2023 CONTRAST: 8.5 cc Gadavist contrast material. TECHNIQUE: Multi sequence multiplanar MR imaging of the breasts was obtained. Subsequently, after the uneventful intravenous administration of Gadavist contrast material, 6 dynamic sequences were then obtained. Post processing was performed utilizing a expressor software CAD workstation. FINDINGS: The breasts are composed of scattered fibroglandular tissue. There is mild background parenchymal enhancement identified. Lymph nodes with benign morphology are present in the axillary regions. There is no axillary or internal mammary lymphadenopathy. No adenopathy in the visualized mediastinum. The bone marrow signal intensity is unremarkable. T2 weighted images demonstrated a 1.9 cm complex seroma at the prior left lumpectomy site. Mild diffuse left breast skin thickening with associated trabecular edema likely related to prior radiation therapy Post contrast images demonstrated no abnormal enhancement in either breast suggest malignancy. A 2.1 x 2.3 x 1.4 cm postlumpectomy seroma with thin peripheral progressive enhancement is present at the prior lumpectomy site likely related to healing granulation. There is no abnormal signal or enhancement in the chest wall or subcutaneous tissue. IMPRESSION: 1. No MR evidence of malignancy in either breast. Postlumpectomy seroma with surrounding reactive granulation in the left breast at the prior lumpectomy site. 2. No axillary or internal mammary lymphadenopathy. Final assessment: BI-RADS category 2: Benign findings MTDD
== END | disposition home or self-care (01) ==
LOC: RADMRIMAIN 07:26
PROVIDERS: ATTEND Radiology Radiation Oncology
DX: C50.512 Malignant neoplasm of lower-outer quadrant of left female breast (principal); N64.89 Other specified disorders of breast
CPT/HCPCS: 77049; A9585

== ENCOUNTER → 2024-08-30 | Outpatient (CLI) | payer OTHER ==
--- NOTE | 2024-08-30 07:28 | USB ---
Reason for Exam: Clinical finding. Patient History: Menarche at age 12. First Full-Term at age 23. Breast cancer, left, age 51. Patient used Hormonal Contraceptives for 2 years. 03/16/2022, Malignant US biopsy breast VAD LT on the left side. Technique: Method: Targeted. Prior Study Comparison: 04/24/2007 Left Diagnostic Mammogram, [facility]. 02/25/2022 Bilateral MG 3D screening mammo w/cad, [facility]. 03/16/2022 Left MG diagnostic mammo LT wo CAD., [facility]. Findings: The area of palpable concern of the left breast, the axilla of the left breast and the retroareolar of the left breast were scanned. A US of 2 to 4:00 position of the breast and axilla, retro-areolar region were reviewed. Small anechoic 8 mm superficial lesion at the 2:00 position measuring 8 mm and at the 4:00 position measuring 6 mm. Overall Assessment: Probably benign, BI-RAD 3 Management: Diagnostic Breast Ultrasound of the left breast in 6 months. A clinical breast exam by your physician is recommended on an annual basis and results should be correlated with mammographic findings. This exam should not preclude additional follow-up of suspicious palpable abnormalities. Results were given to the patient verbally at the time of exam. [facility], , 08/30/2024 7:25 AM. Electronically signed and approved by: Pieter Mercer M.D. Radiologis
== END | disposition home or self-care (01) ==
LOC: RADUSWWP 06:49
PROVIDERS: ATTEND Radiology Radiation Oncology
DX: C50.512 Malignant neoplasm of lower-outer quadrant of left female breast (principal); Z85.3 Personal history of malignant neoplasm of breast; Z92.0 Personal history of contraception